=== PATIENT | male | born 1985 | race Caucasian/White ===

== ENCOUNTER 2020-09-25 12:23 | Emergency (ER) | payer SELFPAY ==
[~2020-09-25] VITALS: Ht 180.3 cm; Wt 70.0 kg
--- NOTE | 2020-09-25 12:35 | NUR ---
INITIAL PT CONTACT. PT PRESENTS TO ED VIA AMBULANCE C/O SEIZURE. PT ACCOMPAINED BY . HX: PT'S IS AND PT HAS BEEN EXPERIENCING SYMPATHETIC VOMITING FOR THE ENTIRE PREGANANCY OF HIS . TODAY THE PT WAS FOUND BY HIS ON THE BATHROOM FLOOR IN A "DAZED AND CONFUSED STATE, HE WOULDN'T RESPOND TO ANY QUESTIONS, HE COULDN'T TRACK ANYTHING THAT WAS HAPPENING. HIS HANDS ALSO DID THIS SPASM TYPE THING." PT DRINKS 1/2 PINT VODKA A DAY AND HAD 2 SHOTS THIS MORNING. NO BOWEL OR BLADDER INCONTINENCE AND NO ORAL TRAUMA NOTED. PT UPRIGHT ON GURNEY WITH EYES CLOSED AND SEIZURE PRECAUTIONS IN PLACE. 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 PT PROVIDED A URINAL PER REQUEST. PT DENIES ANY NEEDS AT THIS TIME. WILL CONTINUE TO MONITOR.
[2020-09-25] MEDS ORDERED: THIAMINE 100MG TABLET PO ONE (13:00)
[2020-09-25] MEDS ORDERED: SODIUM CHLORIDE 0.9% 1,000ML IVBOLUS ONE (13:00)
[2020-09-25] MEDS ORDERED: THIAMINE 100MG TABLET ONE (13:01)
[2020-09-25 13:20] LABS: BASOPHILS % (AUTO) 0 % (0-1); CHLORIDE 108 mmol/L (98-107); EOSINOPHILS % (AUTO) 1 % (1-7); LYMPHOCYTES % (AUTO) 12 % (22-44); MEAN CORPUSCULAR HEMOGLOBIN 36.8 pg (27.5-34.5); MEAN CORPUSCULAR HGB CONC 32.8 g/dL (33.2-36.2); MEAN PLATELET VOLUME 7.6 fL (7.4-10.4); MONOCYTES % (AUTO) 4 % (2-9); NEUTROPHILS % (AUTO) 84 % (42-75); PLATELET COUNT 291 x10^3/uL (130-400); RED BLOOD COUNT 3.33 x10^6/uL (4.38-5.82); RED CELL DISTRIBUTION WIDTH 13.7 % (9.4-14.8)
--- NOTE | 2020-09-25 13:22 | NUR ---
TASK RN: PT MEDICATED PER MAR
[2020-09-25 13:25] LABS: ALBUMIN 3.9 g/dL (3.4-5.0); ANION GAP 13 mmol/L (5-15); CALCIUM 8.6 mg/dL (8.5-10.1)
[2020-09-25 13:29] LABS: ALANINE AMINOTRANSFERASE 118 U/L (12-78); ALKALINE PHOSPHATASE 134 U/L (45-117); BILIRUBIN,TOTAL 1.1 mg/dL (0.2-1.0); CREATININE 1.34 mg/dL (0.7-1.3); TOTAL PROTEIN 7.3 g/dL (6.4-8.2)
[2020-09-25] MEDS ORDERED: ONDANSETRON 2MG/ML, 2ML IVPush ONE (13:30)
[2020-09-25] MEDS ORDERED: ONDANSETRON 2MG/ML, 2ML ONE (13:34)
[2020-09-25] MEDS ORDERED: KETOROLAC 30 MG/1 ML ONE (13:44)
[2020-09-25] MEDS ORDERED: KETOROLAC 30 MG/1 ML IVPush ONE (14:00)
[2020-09-25 14:08] LABS: MD SCAN
[2020-09-25 14:15] VITALS: BP 131/81
--- NOTE | 2020-09-25 14:15 | NUR ---
Patient given discharge instructions and they have confirmed that they understand the instructions. Patient ambulatory with steady gait.
== END 2020-09-25 14:25 | disposition home or self-care (01) ==
LOC: ED 14:15
DX: S29.012A Strain of muscle and tendon of back wall of thorax, initial encounter (principal); K29.20 Alcoholic gastritis without bleeding; F10.132 Alcohol abuse with withdrawal with perceptual disturbance; R51.9 Headache, unspecified; R56.9 Unspecified convulsions; F17.210 Nicotine dependence, cigarettes, uncomplicated; X58.XXXA Exposure to other specified factors, initial encounter; Y93.89 Activity, other specified; Y92.89 Other specified places as the place of occurrence of the external cause; Y99.8 Other external cause status; Y90.0 Blood alcohol level of less than 20 mg/100 ml
CPT/HCPCS: 36415; 70450; 71101; 80053; 85025; 96361; 96374; 96375; 99285; J1885; J2405; J7030